=== PATIENT | female | born 1935 | race African-American/Black ===

== ENCOUNTER 2018-04-22 13:05 | Inpatient (IN) | payer MEDICARE, BC ==
[~2018-04-22] VITALS: Ht 157.5 cm; Wt 67.6 kg
[~2018-04-22 13:05] MED LIST: AMLO5TAB4 PO; ASPI-1159 PO; ATOR10TA PO; COR25 PO; DOCU-138 PO; ENAL20TA PO; HYDR-4134 PO
[2018-04-22] MEDS ORDERED: SODIUM CHLORIDE 0.9% 1,000 ML IV ONE (14:12)
[2018-04-22] MEDS ORDERED: ONDANSETRON HCL 4MG/2ML INJ IV STA (14:12)
[2018-04-22] MEDS ORDERED: KETOROLAC 15MG/ML VIAL IV ONE (14:15)
[2018-04-22 15:04] LABS: HEMOGLOBIN. 10.1 g/dL (12.0-16.0); MEAN CORPUSCULAR HEMOGLOBIN 29.2 pg (28.0-32.0); MEAN CORPUSCULAR VOLUME 89.9 fL (81.0-99.0); MEAN PLATELET VOLUME 9.1 fl (7.4-10.4); PLATELET 184 x1000/uL (130-400); RED BLOOD CELL COUNT 3.45 mill/uL (4.2-5.4); RED CELL DISTRIBUTION WIDTH 15.1 % (11.6-14.6)
[2018-04-22 15:12] LABS: INR 1.1; PARTIAL THROMBOPLASTIN TIME 25.6 sec (23.4-31.0); PROTHROMBIN TIME 11.2 sec (9.1-11.1)
[2018-04-22 15:15] LABS: CHLORIDE 103 mEq/L (98-107)
[2018-04-22 15:41] LABS: PLATELET ESTIMATE NORMAL
[2018-04-22 16:09] LABS: CLARITY URINE CLEAR (CLEAR); COLOR URINE YELLOW (YELLOW); KETONES URINE NEGATIVE (NEGATIVE); LEUKOCYTE ESTERASE URINE TRACE (NEGATIVE); NITRITE URINE NEGATIVE (NEGATIVE); OCCULT BLOOD URINE NEGATIVE (NEGATIVE); PROTEIN URINE 3+ (NEGATIVE); SPECIFIC GRAVITY URINE 1.015 (1.005-1.030); UROBILINOGEN URINE 0.2 E.U./dL (0.2-1.0)
[2018-04-22] MEDS ORDERED: ASPIRIN 81MG TABLET PO ONE (16:30)
[2018-04-22] MEDS ORDERED: LEVOFLOXACIN 750MG PREMIX 150 ML IV ONE (16:30)
[2018-04-22] MEDS ORDERED: FUROSEMIDE 40MG/4ML VIAL IV ONE (16:30)
[2018-04-22] MEDS ORDERED: CLONIDINE 0.1MG TABLET PO PRN (19:45)
[2018-04-22] MEDS ORDERED: ACETAMINOPHEN 325MG TABLET PO PRN (19:45)
[2018-04-22] MEDS ORDERED: IPRATROPIUM/ALBUTEROL 0.5-3(2.5)MG/3ML NEB INH PRN (19:45)
[2018-04-22 20:00] VITALS: BP_SYST 110; BP_SYST 152; BP_DIAS 55; BP_DIAS 59
[2018-04-22 21:00] VITALS: BP 152/55
[2018-04-22] MEDS ORDERED: ENALAPRIL 5MG TABLET PO SCH (21:00)
[2018-04-22] MEDS: ATORVASTATIN CALCIUM 20MG TABLET PO SCH (21:52)
[2018-04-22] MEDS: CARVEDILOL 3.125 MG TABLET PO SCH (21:52)
[2018-04-22] MEDS: AMLODIPINE 5MG TABLET PO SCH (21:53)
[2018-04-22] MEDS: SODIUM CHLORIDE 0.9% INJ 3ML FLUSH IVF SCH (21:53)
[2018-04-22] MEDS: ENOXAPARIN 40MG/0.4ML SYR SUBCUT SCH (21:53)
[2018-04-22 22:00] VITALS: BP 146/72
[2018-04-22] MEDS: LORAZEPAM 1MG TABLET PO PRN (22:18)
[2018-04-23] VITALS (12 sets, daily range): BP systolic 136–164; BP diastolic 47–77
[2018-04-23] MEDS: ONDANSETRON HCL 4MG/2ML INJ IV PRN ×3 (00:21→20:34)
[2018-04-23] MEDS: ENALAPRIL 5MG TABLET PO SCH ×3 (00:21→20:32)
[2018-04-23] MEDS: SODIUM CHLORIDE 0.9% INJ 3ML FLUSH IVF SCH ×3 (06:06→21:42)
[2018-04-23] MEDS ORDERED: ASPIRIN 81MG EC TABLET PO SCH (09:00)
[2018-04-23] MEDS: FUROSEMIDE 40MG/4ML VIAL IVP SCH (09:13)
[2018-04-23] MEDS: CARVEDILOL 3.125 MG TABLET PO SCH ×2 (09:14→20:32)
[2018-04-23] MEDS: AMLODIPINE 5MG TABLET PO SCH ×2 (09:14→20:33)
[2018-04-23] MEDS: LORAZEPAM 1MG TABLET PO PRN ×2 (11:41→20:31)
[2018-04-23 16:20] LABS: T4 FREE 1.19 ng/dL (0.76-1.46)
[2018-04-23] MEDS ORDERED: MAGNESIUM HYDROXIDE 400MG/5ML 30ML UDC PO PRN (16:30)
[2018-04-23] MEDS: CLOPIDOGREL 75MG TABLET PO SCH (17:36)
[2018-04-23] MEDS: DOCUSATE SODIUM 100MG CAPSULE PO SCH (17:36)
[2018-04-23] MEDS: ATORVASTATIN CALCIUM 20MG TABLET PO SCH (20:32)
[2018-04-23] MEDS: ENOXAPARIN 40MG/0.4ML SYR SUBCUT SCH (20:33)
[2018-04-23] MEDS: TEMAZEPAM 15MG CAPSULE PO PRN (23:31)
[2018-04-23] MEDS: TRAMADOL 50MG TABLET PO PRN (23:32)
[2018-04-23 23:49] LABS: CREATINE KINASE MB FRACTION 1.6 ng/mL (0.5-3.6)
[2018-04-24] VITALS (12 sets, daily range): BP systolic 108–152; BP diastolic 48–65
[2018-04-24] MEDS: SODIUM CHLORIDE 0.9% INJ 3ML FLUSH IVF SCH ×3 (05:18→21:02)
[2018-04-24] MEDS: LORAZEPAM 1MG TABLET PO PRN ×2 (05:53→14:28)
[2018-04-24 08:03] LABS: CREATINE KINASE MB FRACTION 1.5 ng/mL (0.5-3.6)
[2018-04-24] MEDS: CLOPIDOGREL 75MG TABLET PO SCH ×2 (09:00→09:58)
[2018-04-24] MEDS: POLYETHYLENE GLYCOL 3350 (17GM) 1 DOSE PACK PO SCH (09:00)
[2018-04-24] MEDS: DOCUSATE SODIUM 100MG CAPSULE PO SCH ×2 (09:55→17:16)
[2018-04-24] MEDS: FUROSEMIDE 40MG/4ML VIAL IVP SCH (09:55)
[2018-04-24] MEDS: ASPIRIN 81MG TABLET PO SCH (09:56)
[2018-04-24] MEDS: CARVEDILOL 3.125 MG TABLET PO SCH ×2 (09:56→21:01)
[2018-04-24] MEDS: AMLODIPINE 5MG TABLET PO SCH ×2 (09:56→21:02)
[2018-04-24] MEDS: ENALAPRIL 5MG TABLET PO SCH ×2 (09:57→21:01)
[2018-04-24] MEDS: TRAMADOL 50MG TABLET PO PRN (11:50)
[2018-04-24] MEDS: ONDANSETRON HCL 4MG/2ML INJ IV PRN (11:54)
[2018-04-24 17:27] LABS: CREATINE KINASE MB FRACTION 1.3 ng/mL (0.5-3.6)
[2018-04-24] MEDS: ENOXAPARIN 40MG/0.4ML SYR SUBCUT SCH (21:00)
[2018-04-24] MEDS: TEMAZEPAM 15MG CAPSULE PO PRN (21:01)
[2018-04-24] MEDS: ATORVASTATIN CALCIUM 20MG TABLET PO SCH (21:01)
[2018-04-25] VITALS (12 sets, daily range): BP systolic 116–149; BP diastolic 45–61
[2018-04-25] MEDS: LORAZEPAM 1MG TABLET PO PRN ×2 (04:30→14:57)
[2018-04-25] MEDS: SODIUM CHLORIDE 0.9% INJ 3ML FLUSH IVF SCH ×3 (05:56→21:46)
[2018-04-25] MEDS: POLYETHYLENE GLYCOL 3350 (17GM) 1 DOSE PACK PO SCH ×2 (09:00→17:57)
[2018-04-25] MEDS: CLOPIDOGREL 75MG TABLET PO SCH (09:00)
[2018-04-25] MEDS: DOCUSATE SODIUM 100MG CAPSULE PO SCH ×2 (09:40→17:56)
[2018-04-25] MEDS: FUROSEMIDE 40MG/4ML VIAL IVP SCH (09:40)
[2018-04-25] MEDS: AMLODIPINE 5MG TABLET PO SCH ×2 (09:41→21:45)
[2018-04-25] MEDS: ENALAPRIL 5MG TABLET PO SCH ×2 (09:41→21:44)
[2018-04-25] MEDS: CARVEDILOL 3.125 MG TABLET PO SCH ×2 (09:41→21:45)
[2018-04-25] MEDS: ASPIRIN 81MG TABLET PO SCH (09:41)
[2018-04-25 15:42] LABS: BG BASE EXCESS 3.7 mmol/L (-2.0-2.0); BG CARBOXYHEMOGLOBIN 0.2 % (0.5-1.5); BG DEOXYHEMOGLOBIN 13.8 % (0.0-5.0); BG FRACTION INSPIRED OXYGEN 21; BG HCO3 ACT 29.4 mmol/L (22.0-26.0); BG METHEMOGLOBIN 0.3 % (0.0-1.5); BG OXYGEN SATURATION 86.1 % (92.0-98.5); BG OXYHEMOGLOBIN 85.7 % (94.0-97.0); BG PCO2 49.9 mmHg (35.0-45.0); BG PH 7.388 (7.350-7.450); BG PO2 50.9 mmHg (75.0-100.0); BG SAMPLE SITE RIGHT BRACHIAL; BG TOTAL HEMOGLOBIN 10.7 g/dL (12.0-18.0); BG VENT MODE ROOM AIR
[2018-04-25] MEDS: TRAMADOL 50MG TABLET PO PRN ×2 (18:26→23:18)
[2018-04-25] MEDS ORDERED: METOLAZONE 10MG TABLET PO NR (19:45)
[2018-04-25] MEDS ORDERED: METOLAZONE 5MG TABLET PO NR (19:48)
[2018-04-25] MEDS: ENOXAPARIN 40MG/0.4ML SYR SUBCUT SCH (21:00)
[2018-04-25] MEDS: TEMAZEPAM 15MG CAPSULE PO PRN (21:45)
[2018-04-25] MEDS: ATORVASTATIN CALCIUM 20MG TABLET PO SCH (21:45)
[2018-04-26] VITALS (14 sets, daily range): BP systolic 100–138; BP diastolic 36–59
[2018-04-26] MEDS: SODIUM CHLORIDE 0.9% INJ 3ML FLUSH IVF SCH ×2 (05:49→13:33)
[2018-04-26] MEDS: FUROSEMIDE 40MG/4ML VIAL IVP SCH (08:16)
[2018-04-26] MEDS: ASPIRIN 81MG TABLET PO SCH (08:16)
[2018-04-26] MEDS: LORAZEPAM 1MG TABLET PO PRN ×2 (08:16→16:32)
[2018-04-26] MEDS: ONDANSETRON HCL 4MG/2ML INJ IV PRN (08:16)
[2018-04-26] MEDS: DOCUSATE SODIUM 100MG CAPSULE PO SCH ×2 (08:17→16:33)
[2018-04-26] MEDS: CLOPIDOGREL 75MG TABLET PO SCH (08:17)
[2018-04-26] MEDS: AMLODIPINE 5MG TABLET PO SCH (08:17)
[2018-04-26] MEDS: ENALAPRIL 5MG TABLET PO SCH (08:17)
[2018-04-26] MEDS: CARVEDILOL 3.125 MG TABLET PO SCH (08:18)
[2018-04-26] MEDS: POLYETHYLENE GLYCOL 3350 (17GM) 1 DOSE PACK PO SCH ×2 (08:18→16:33)
[2018-04-26] MEDS ORDERED: ENOXAPARIN 30MG/0.3ML SYR SUBCUT SCH (14:00)
== END 2018-04-26 18:55 | disposition home health service (06) | DRG 280 ==
LOC: ER 13:05 → EDBEDREQSVC 16:59 → EDBEDREQ 16:59 → EDBEDREQTM 16:59 → ENRESERV 17:36 → 5EST 18:31
PROVIDERS: ADMIT Internal Medicine; ATTEND Internal Medicine
DX: I21.4 Non-ST elevation (NSTEMI) myocardial infarction (principal); I50.23 Acute on chronic systolic (congestive) heart failure; I42.9 Cardiomyopathy, unspecified; D64.9 Anemia, unspecified; E11.9 Type 2 diabetes mellitus without complications; E78.5 Hyperlipidemia, unspecified; F41.1 Generalized anxiety disorder; I08.0 Rheumatic disorders of both mitral and aortic valves; I11.0 Hypertensive heart disease with heart failure; I25.10 Atherosclerotic heart disease of native coronary artery without angina pectoris; J44.9 Chronic obstructive pulmonary disease, unspecified; R09.02 Hypoxemia; Z82.49 Family history of ischemic heart disease and other diseases of the circulatory system; Z90.710 Acquired absence of both cervix and uterus; Z95.810 Presence of automatic (implantable) cardiac defibrillator; Z88.5 Allergy status to narcotic agent; Z88.8 Allergy status to other drugs, medicaments and biological substances; Z79.82 Long term (current) use of aspirin; Z79.899 Other long term (current) drug therapy
CPT/HCPCS: 36415; 36600; 71045; 74176; 78582; 80048; 80061; 82375; 82550; 82553; 82805; 83036; 83605; 83735; 83880; 84134; 84439; 84443; 84484; 85379; 93005; 93306; 93308; 93970; 96361; 96365; 96366; 96375; 97110; 97166; 97535; 99291; A9558; J1650; J1885; J1940; J1956; J2405; J7030

== ENCOUNTER 2018-06-05 12:44 | Inpatient (IN) | payer MEDICARE, BC ==
[~2018-06-05] VITALS: Ht 167.6 cm; Wt 61.2 kg
[2018-06-05] MEDS ORDERED: LORAZEPAM 0.5MG TABLET PO ONE ×2 (13:15→14:00)
[2018-06-05] MEDS ORDERED: ASPIRIN 81MG TABLET PO ONE (14:15)
[2018-06-05 14:59] LABS: EOSINOPHILS % 2.6 % (0.0-5.0); HEMATOCRIT. 28.6 % (36.0-48.0); HEMOGLOBIN. 9.5 g/dL (12.0-16.0); LYMPHOCYTES % 8.4 % (20.0-50.0); MEAN CORPUSCULAR HEMOGLOBIN 29.4 pg (28.0-32.0); MEAN CORPUSCULAR VOLUME 88.1 fL (81.0-99.0); MEAN PLATELET VOLUME 8.2 fl (7.4-10.4); MONOCYTES % 8.1 % (2.0-8.0); NEUTROPHILS % 79.9 % (40.0-76.0); PLATELET 91 x1000/uL (130-400); RED BLOOD CELL COUNT 3.24 mill/uL (4.2-5.4); RED CELL DISTRIBUTION WIDTH 14.8 % (11.6-14.6)
[2018-06-05 15:03] LABS: CHLORIDE 109 mEq/L (98-107)
[2018-06-05 15:06] LABS: INR 1.1; PROTHROMBIN TIME 11.3 sec (9.1-11.1)
[2018-06-05] MEDS ORDERED: TRAMADOL 50MG TABLET PO ONE (15:15)
[2018-06-05] MEDS ORDERED: ACETAMINOPHEN 325MG TABLET PO ONE (19:30)
[2018-06-05 22:35] VITALS: BP 175/70
[2018-06-06] VITALS: BP 162/80
[2018-06-06] MEDS ORDERED: ONDANSETRON HCL 4MG/2ML INJ IV PRN (00:45)
[2018-06-06] MEDS ORDERED: ACETAMINOPHEN 325MG TABLET PO PRN (00:45)
[2018-06-06] MEDS ORDERED: MAGNESIUM/ALUMINUM HYDROXIDE/SIMETHICONE 30ML UDC PO PRN (00:45)
[2018-06-06] MEDS: LORAZEPAM 0.5MG TABLET PO PRN ×3 (01:26→17:53)
[2018-06-06 04:00] VITALS: BP 146/67
[2018-06-06] MEDS: TRAMADOL 50MG TABLET PO PRN ×3 (05:06→20:27)
[2018-06-06 08:00] VITALS: BP 154/69
[2018-06-06] MEDS: DOCUSATE SODIUM 100MG CAPSULE PO SCH ×2 (08:57→17:14)
[2018-06-06] MEDS: CARVEDILOL 3.125 MG TABLET PO SCH ×2 (08:57→20:28)
[2018-06-06] MEDS: ENALAPRIL 5MG TABLET PO SCH ×2 (08:58→20:28)
[2018-06-06] MEDS: FUROSEMIDE 40MG TABLET PO SCH (08:58)
[2018-06-06] MEDS ORDERED: REGADENOSON 0.4 MG/5 ML IV ONE (09:30)
[2018-06-06 10:34] LABS: T4 FREE 1.12 ng/dL (0.76-1.46)
[2018-06-06 12:18] VITALS: BP 140/75
[2018-06-06 15:58] VITALS: BP 144/77
[2018-06-06 16:07] LABS: CREATINE KINASE MB FRACTION < 1.0 ng/mL (0.5-3.6)
[2018-06-06 16:10] LABS: CREATINE KINASE 54 IU/L (26-192)
[2018-06-06] MEDS ORDERED: BISACODYL 10MG SUPP PR PRN (19:00)
[2018-06-06] MEDS ORDERED: MAGNESIUM HYDROXIDE 400MG/5ML 30ML UDC PO PRN (19:00)
[2018-06-06 20:00] VITALS: BP 157/78
[2018-06-06] MEDS: ATORVASTATIN CALCIUM 40MG TABLET PO SCH (20:28)
[2018-06-06] MEDS: SODIUM CHLORIDE 0.9% INJ 3ML FLUSH IVF SCH (20:32)
[2018-06-07] VITALS: BP 138/69
[2018-06-07 00:22] LABS: CREATINE KINASE MB FRACTION < 1.0 ng/mL (0.5-3.6)
[2018-06-07 00:25] LABS: CREATINE KINASE 48 IU/L (26-192)
[2018-06-07 04:00] VITALS: BP 142/68
[2018-06-07] MEDS: LORAZEPAM 0.5MG TABLET PO PRN ×3 (04:48→16:41)
[2018-06-07] MEDS: SODIUM CHLORIDE 0.9% INJ 3ML FLUSH IVF SCH ×3 (06:00→21:54)
[2018-06-07 08:00] VITALS: BP 148/74
[2018-06-07 08:00] LABS: CREATINE KINASE 48 IU/L (26-192); CREATINE KINASE MB FRACTION < 1.0 ng/mL (0.5-3.6)
[2018-06-07] MEDS ORDERED: DOCUSATE SODIUM 100MG CAPSULE PO SCH (09:00)
[2018-06-07] MEDS: ASPIRIN 81MG TABLET PO SCH (09:15)
[2018-06-07] MEDS: ENALAPRIL 5MG TABLET PO SCH ×2 (09:16→20:28)
[2018-06-07] MEDS: FUROSEMIDE 40MG TABLET PO SCH (09:16)
[2018-06-07] MEDS: CARVEDILOL 3.125 MG TABLET PO SCH ×2 (09:16→20:28)
[2018-06-07] MEDS: DOCUSATE SODIUM 100MG CAPSULE PO SCH ×2 (09:16→16:39)
[2018-06-07 12:00] VITALS: BP 153/70
[2018-06-07] MEDS: TRAMADOL 50MG TABLET PO PRN ×2 (14:14→20:48)
[2018-06-07 16:00] VITALS: BP 147/74
[2018-06-07] MEDS: LOSARTAN POTASSIUM 25 MG TABLET PO SCH (16:39)
[2018-06-07 20:00] VITALS: BP 141/70
[2018-06-07] MEDS: ATORVASTATIN CALCIUM 40MG TABLET PO SCH (20:28)
[2018-06-08] VITALS: BP 135/68
[2018-06-08] MEDS: LORAZEPAM 0.5MG TABLET PO PRN (03:30)
[2018-06-08 04:00] VITALS: BP 142/65
[2018-06-08] MEDS: SODIUM CHLORIDE 0.9% INJ 3ML FLUSH IVF SCH (06:02)
[2018-06-08 08:00] VITALS: BP 133/64
[2018-06-08] MEDS: LOSARTAN POTASSIUM 25 MG TABLET PO SCH (08:34)
[2018-06-08] MEDS: DOCUSATE SODIUM 100MG CAPSULE PO SCH (08:34)
[2018-06-08] MEDS: ASPIRIN 81MG TABLET PO SCH (08:34)
[2018-06-08] MEDS: ENALAPRIL 5MG TABLET PO SCH (08:34)
[2018-06-08] MEDS: FUROSEMIDE 40MG TABLET PO SCH (08:35)
[2018-06-08] MEDS: CARVEDILOL 3.125 MG TABLET PO SCH (08:35)
[2018-06-08 12:00] VITALS: BP 137/64
[2018-06-08 12:15] VITALS: BP 137/64
== END 2018-06-08 13:30 | disposition home or self-care (01) | DRG 313 ==
LOC: ER 13:00 → 6WST 15:19 → ENRESERV 21:20
PROVIDERS: ADMIT Internal Medicine; ATTEND Internal Medicine
DX: R07.89 Other chest pain (principal); I42.9 Cardiomyopathy, unspecified; I50.22 Chronic systolic (congestive) heart failure; F41.0 Panic disorder [episodic paroxysmal anxiety]; E78.00 Pure hypercholesterolemia, unspecified; E78.5 Hyperlipidemia, unspecified; I11.0 Hypertensive heart disease with heart failure; I25.10 Atherosclerotic heart disease of native coronary artery without angina pectoris; I35.1 Nonrheumatic aortic (valve) insufficiency; N28.9 Disorder of kidney and ureter, unspecified; Z79.01 Long term (current) use of anticoagulants; Z82.49 Family history of ischemic heart disease and other diseases of the circulatory system; Z90.710 Acquired absence of both cervix and uterus; Z95.2 Presence of prosthetic heart valve; Z95.810 Presence of automatic (implantable) cardiac defibrillator; Z79.899 Other long term (current) drug therapy; Z88.8 Allergy status to other drugs, medicaments and biological substances; Z79.82 Long term (current) use of aspirin; I25.2 Old myocardial infarction
CPT/HCPCS: 36415; 71045; 73030; 78582; 80061; 82550; 82553; 83036; 83880; 84439; 84443; 84484; 85379; 93005; 93306; 93970; 99285; A9558